=== PATIENT | female | born 2000 | race Caucasian/White ===

== ENCOUNTER 2025-02-01 10:13 | Outpatient (CLI) | payer OTHER, SELFPAY ==
[2025-02-01 12:09] LABS: Hematocrit 34.5 % (37.0-47.0); Hemoglobin 11.7 g/dL (12.0-15.0); Mean Corpuscular HGB Conc 33.9 g/dl (32-36); Mean Corpuscular Hemoglobin 29.8 pg (26-34); Mean Corpuscular Volume 88.0 fl (80-100); Platelet Count Result 204 k/mm3 (150-375); Red Blood Count 3.92 M/mm3 (4.2-5.4); White Blood Count 10.9 K/mm3 (4.5-10.0)
[2025-02-01 12:33] LABS: Glucose 1 Hour PP 50gm Dose 45 mg/dL
[2025-02-01 13:02] LABS: Syphilis IgG/IgM Antibody Non-Reactive (Nonreactive)
[2025-02-01 13:14] LABS: HIV 1/2 Ab P24 Ag Result Negative (Negative)
== END 2025-02-01 10:14 | disposition home or self-care (01) ==
PROVIDERS: Visit Provider Obstetrics & Gynecology
DX: Z34.90 Encounter for supervision of normal pregnancy, unspecified, unspecified trimester (principal)
CPT/HCPCS: 36415; 82947; 85027; 86593; 86703; G0432